=== PATIENT | female | born 2000 | race Caucasian/White ===

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

== ENCOUNTER 2021-12-28 01:13 | Emergency (ER) | payer OTHER ==
[~2021-12-28] VITALS: Ht 160 cm; Wt 77.1 kg
[~2021-12-28 01:13] MED LIST changes: +DOCU100 PO; +IBUP800 PO; +PRENATAL TABLE1 EAC2 PO
== END 2021-12-28 05:30 | disposition home or self-care (01) ==
LOC: ER 01:13
DX: F10.129 Alcohol abuse with intoxication, unspecified (principal); S00.83XA Contusion of other part of head, initial encounter; W01.10XA Fall on same level from slipping, tripping and stumbling with subsequent striking against unspecified object, initial encounter
CPT/HCPCS: 70450; 96361; 96374; 99284-25; J2405; J7030

== ENCOUNTER 2023-08-11 00:26 | Emergency (ER) | payer OTHER ==
[~2023-08-11] VITALS: Ht 160 cm; Wt 86.2 kg
[2023-08-11 01:31] LABS: Influenza A, PCR NEGATIVE (NEGATIVE); Influenza B, PCR NEGATIVE (NEGATIVE); Resp Syncytial Virus, PCR NEGATIVE (NEGATIVE); SARS-Cov-2 (COVID-19) PCR, MMC NEGATIVE (NEGATIVE)
[2023-08-11] MEDS ORDERED: ERYT.5TO BOTHEYES (01:47)
[2023-08-11 01:51] VITALS: BP 121/40
== END 2023-08-11 01:51 | disposition home or self-care (01) ==
LOC: ER 00:26
PROVIDERS: Emergency Medicine
DX: B30.9 Viral conjunctivitis, unspecified (principal); B34.9 Viral infection, unspecified; Z20.822 Contact with and (suspected) exposure to COVID-19
CPT/HCPCS: 0241U; 99283

== ENCOUNTER 2024-07-17 18:24 | Emergency (ER) | payer OTHER ==
[~2024-07-17] VITALS: Ht 160 cm; Wt 81.7 kg
[~2024-07-17 18:24] MED LIST changes: +ERYT.5TO BOTHEYES
[2024-07-17 18:32] VITALS: BP 134/104
[2024-07-17] MEDS ORDERED: AMOX500 PO (20:13)
[2024-07-17] MEDS ORDERED: Amoxicillin 500 MG Cap PO ONE (20:15)
== END 2024-07-17 20:27 | disposition home or self-care (01) ==
LOC: ER 18:24
DX: J02.0 Streptococcal pharyngitis (principal); Z79.899 Other long term (current) drug therapy
CPT/HCPCS: 87430; 99282; A9270

== ENCOUNTER 2025-04-02 10:38 | Emergency (ER) | payer OTHER ==
[~2025-04-02] VITALS: Ht 160 cm; Wt 86.2 kg
[~2025-04-02 10:38] MED LIST changes: +AMOX500 PO
[2025-04-02] MEDS ORDERED: Albuterol 2.5 MG/3 ML VIAL INH ONE (11:00)
[2025-04-02] MEDS ORDERED: Ipratropium Bromide INH 0.02% 0.5 mg/2.5ML Vial INH SCH (11:00)
[2025-04-02] MEDS ORDERED: Albuterol 2.5 MG/3 ML VIAL INH SCH (12:20)
[2025-04-02 14:06] VITALS: BP 106/85
[2025-04-02] MEDS ORDERED: AZIT250 PO (14:08)
[2025-04-02] MEDS ORDERED: BENZ100A PO (14:08)
== END 2025-04-02 14:07 | disposition home or self-care (01) ==
LOC: ER 10:38
DX: J06.9 Acute upper respiratory infection, unspecified (principal); Z79.899 Other long term (current) drug therapy
CPT/HCPCS: 71046; 99283-25; J7512